=== PATIENT | female | born 1985 | race Asian ===

== ENCOUNTER 2019-04-26 20:15 | Emergency (ER) | payer SELFPAY ==
--- NOTE | 2019-04-26 20:34 | Event Note ---
Date: 04/26/19 33 y.o with right knee pain s/p fall 40 minutes ago. Fell on right side, states knee twisted and popped. Severe pain after putting pressure on right knee. Feels like right knee is out of place. The initial assessment/diagnostic orders/clinical plan/treatment(s) is/are subject to change based on patient's health status,clinical progression and re- assessment by fellow clinical providers in the ED. Further treatment and workup at subsequent clinical providers discretion. Patient/guardian urged not to elope from the ED as their condition may be serious if not clinically assessed and managed.
[2019-04-26] MEDS ORDERED: IBUPROFEN PO ONE (20:36)
--- NOTE | 2019-04-26 21:44 | XRay Report ---
HISTORY: pain s/p fall, below knee COMPARISON: None. TECHNIQUE: AP and lateral views FINDINGS: Bones: No fracture or dislocation. Joint spaces: Maintained. Soft tissues: No significant abnormality. Additional findings: None. IMPRESSION: 1. No significant abnormality. Signer Name: Brayan Cleary MD Signed: 04/26/2019 9:40 PM Workstation Name: [id number]
--- NOTE | 2019-04-26 21:45 | XRay Report ---
HISTORY: COMPARISON: None. TECHNIQUE: AP lateral oblique views of the knee FINDINGS: Bones: No fracture or dislocation. Joint spaces: Maintained. Soft tissues: No significant abnormality. Additional findings: None. IMPRESSION: 1. No significant abnormality. Signer Name: Brayan Cleary MD Signed: 04/26/2019 9:41 PM Workstation Name: [id number]
[2019-04-26] MEDS ORDERED: TORADOL IM STA (21:47)
[2019-04-26] MEDS ORDERED: PERCOCET 5/325 PO STA (21:49)
--- NOTE | 2019-04-26 22:22 | Emergency Department Report ---
ED Lower Extremity HPI - General Chief Complaint: Extremity Injury, Lower Stated Complaint: RT KNEE PAIN Time Seen by Provider: 04/26/19 21:43 Source: patient, EMS Mode of arrival: Wheelchair Limitations: Physical Limitation - History of Present Illness MD Complaint: knee injury -: Gradual Injury: Knee: Right Type of Injury: eversion (was at [employer], walking backwards when the nephew when he fell behind her, causing her to fall in her knee eversion type of movement causing pain to the medial and posterior aspect of the knee and a popping sensation.) Place: street/outdoors Severity: mild Worsens With: nothing Associated Symptoms: snap/pop sensation, unable to bear weight - Related Data Home Medications Medication Instructions Recorded Confirmed Last Taken Ferrous Sulfate [Iron Supplement] 325 mg PO BID 11/06/13 11/14/13 11/13/13 08:00 Labetalol [Normodyne] 100 mg PO BID 11/06/13 11/14/13 11/14/13 08:00 1 tab Vit No.126/Iron/Folic 1 each PO DAILY 11/06/13 11/14/13 11/13/13 08:00 [Classic Tablet] 1 tab Previous Rx's Medication Instructions Recorded Last Taken Type Acetaminophen/Codeine [Tylenol #3] 1 tab PO Q6H PRN #15 tab 04/26/19 Unknown Rx Ketorolac [Toradol] 10 mg PO Q6H PRN #15 tablet 04/26/19 Unknown Rx Allergies Allergy/AdvReac Type Severity Reaction Status Date / Time No Known Allergies Allergy Verified 11/06/13 22:00 ED Review of Systems ROS: Stated complaint: RT KNEE PAIN Other details as noted in HPI Comment: All other systems reviewed and negative ED Past Medical Hx - Past Medical History Previous Medical History?: Yes Hx Hypertension: Yes (CHTN, took labetalol this am) Hx Congestive Heart Failure: No Hx Diabetes: No Hx Deep Vein Thrombosis: No Hx Renal Disease: No Hx Sickle Cell Disease: No Hx Seizures: No Hx Asthma: No Hx COPD: No Hx HIV: No Additional medical history: Morbid Obesity - Surgical History Past Surgical History?: Yes Additional Surgical History: Open heart surgery at 5 yrs old - Social History Smoking Status: Current Every Day Smoker Substance Use Type: None - Medications Home Medications: Home Medications Medication Instructions Recorded Confirmed Last Taken Type Ferrous Sulfate [Iron Supplement] 325 mg PO BID 11/06/13 11/14/13 11/13/13 08:00 History Labetalol [Normodyne] 100 mg PO BID 11/06/13 11/14/13 11/14/13 08:00 History 1 tab Vit No.126/Iron/Folic 1 each PO DAILY 11/06/13 11/14/13 11/13/13 08:00 History [Classic Tablet] 1 tab Acetaminophen/Codeine [Tylenol #3] 1 tab PO Q6H PRN #15 tab 04/26/19 Unknown Rx Ketorolac [Toradol] 10 mg PO Q6H PRN #15 tablet 04/26/19 Unknown Rx ED Physical Exam - General Limitations: Physical Limitation General appearance: alert, in no apparent distress - Head Head exam: Present: atraumatic, normocephalic - Eye Eye exam: Present: normal appearance - ENT ENT exam: Present: mucous membranes moist - Neck Neck exam: Present: normal inspection - Respiratory Respiratory exam: Present: normal lung sounds bilaterally. Absent: respiratory distress - Cardiovascular Cardiovascular Exam: Present: regular rate, normal rhythm. Absent: systolic murmur, diastolic murmur, rubs, gallop - GI/Abdominal GI/Abdominal exam: Present: soft, normal bowel sounds - Extremities Exam Extremities exam: Present: normal inspection, tenderness - Expanded Lower Extremity Exam Right Upper Leg exam: Present: normal inspection, full ROM Knee exam: Present: tenderness, swelling, pain/laxity with valgus. Absent: laceration, ecchymosis, deformity Lower Leg exam: Present: normal inspection, full ROM - Back Exam Back exam: Present: normal inspection - Neurological Exam Neurological exam: Present: alert, oriented X3 - Psychiatric Psychiatric exam: Present: normal affect, normal mood - Skin Skin exam: Present: warm, dry, intact, normal color. Absent: rash ED Course Vital Signs 04/26/19 20:32 Temperature 97.6 F Pulse Rate 106 H Respiratory 18 Rate Blood Pressure 155/99 O2 Sat by Pulse 100 Oximetry - Procedure Description Procedures done: Patient was placed in a knee immobilizer and crutches Critical care attestation.: If time is entered above; I have spent that time in minutes in the direct care of this critically ill patient, excluding procedure time. ED Disposition Clinical Impression: Knee internal derangement, Knee pain, right Disposition: [id number] TO HOME OR SELFCARE Is pt being admited?: No Does the pt Need Aspirin: No Condition: Stable Instructions: Arthralgia (ED), Knee Pain (ED), Knee Sprain (ED), Knee Effusion (ED), Crutch Instructions (ED) Additional Instructions: Please use crutches to refrain from placing weight on the right leg until cleared by orthopedic Prescriptions: Ketorolac [Toradol] 10 mg PO Q6H PRN #15 tablet PRN Reason: Pain Acetaminophen/Codeine [Tylenol #3] 1 tab PO Q6H PRN #15 tab PRN Reason: Pain Referrals: CELESTE SMITH MD [Primary Care Provider] - 3-5 Days ROBERT HOOK MD [Staff Physician] - 3-5 Days
[2019-04-26 23:47] VITALS: BP 145/83
== END 2019-04-26 23:05 | disposition home or self-care (01) ==
LOC: ED 20:15
DX: M24.9 Joint derangement, unspecified (principal); M25.561 Pain in right knee
CPT/HCPCS: 29505; 73560; 73590; 96372; 99284; J1885